=== PATIENT | female | born 1980 | race Caucasian/White ===

== ENCOUNTER 2016-07-06 14:23 | Emergency (ER) | payer SELFPAY ==
[~2016-07-06 14:23] MED LIST: ACET325T9 PO; ALBU8.5H6 IH; ALPR0.5T6 PO; ATEN100T PO; BUSP5TAB PO; CITA10TA8 PO; CITA20TA9 PO; DIPH25CA58 PO; GUAI600T38 PO; HYDR-2666 PO; HYDR10TA2 PO; HYOS0.1264 PO; IBUP200T43 PO; IBUP200T93 PO; IBUP400T PO; IBUP800T PO; LORA-434 PO; LORA0.5P MC; LORA0.5T96 PO; MULT1TAB52 PO; MVI, ADULT NO.4 WITH VIT K 10 ML, FOLIC ACID SYRINGE for ER 1 MG, THIAMINE 100 MG in IV... IV SCH; NAPR500T PO; ONDA4TAB12 PO; ONDA4TAB7 PO; PHEN100C PO; POTA20TA82 PO; PROM25AM6 IJ; PROM25SU32 RC; PROM25TA10 PO; QUET25TA5 PO; QUET300T5 PO; TRAM50TA PO; [UNRECOGNIZED DRUG - CODE] PO; [UNRECOGNIZED DRUG - OTHER]; iron; vistaril; vitamin c; zyprexa
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
[2016-07-06] MEDS ORDERED: PHENYTOIN SODIUM EXTENDED 100 MG CAPSULE PO ONE (15:15)
--- NOTE | 2016-07-06 15:15 | ACF ---
Admission Criteria Forms PSYCHIATRIC DISORDERS Clinical Indications for Inpatient Care (Place 'X' for any and all applicable criteria): Ongoing inpatient care may be needed for ANY ONE of the following(1)(2)(3)(4)(6) (7)(8): [X]I. Danger to self or others not manageable at lower level of care. [ ]II. Grave disability (eg, inability to perform self care necessary at lower level of care) [ ]III. Agitation or inappropriate behavior interfering with care for primary condition (eg, attempting to discontinue lines or drains prematurely, unable to cooperate with respiratory care) [ ]IV. Severe disability or disorder indicated by ALL of the following: [ ]a) Severe behavioral health disorder-related symptoms or condition indicated by ANY ONE of the following: [ ]i) Severe problem with cognition, memory, judgment, or impulse control [ ]ii) Severe clinical manifestations (eg, hallucinations, delusions, other acute psychotic symptoms, july, extreme agitation or anxiety) [ ]b) Patient management at lower level of care is not feasible until acute intervention or modification is initiated. Extended stay beyond goal length of stay for the primary condition may be indicated when ANY ONE of the following is present: (1)(2)(3)(4): [ ]a) Patient is a danger to self or others and not manageable at lower level of care. [ ]b) Behavior crisis management, including physical or chemical restraints, is required and is not available at a lower level of care. [ ]c) Behavioral symptoms (e.g., agitation, somnolence, inappropriate behavior) are present, and are not manageable at a lower level of care. [ ]d) Patient cannot understand follow-up treatment and crisis plan. [ ]e) Provider and supports are not sufficiently available at lower level of care. [ ]f) Patient cannot participate (e.g., verify absence of plan for harm) and is in needed of monitoring. The original [facility] content created by [employer] has been revised. The portions of the content which have been revised are identified through the use of italic text or in bold, and [facility] has neither reviewed nor approved the modified material. All other unmodified content is copyright [facility] [employer]. Please see references footnoted in the original [facility] edition 2016 Admission Criteria Met?: Yes KAR LEDESMA Jul 06, 2016 15:15
--- NOTE | 2016-07-06 15:28 | EKG ---
[address] [address] Test Date: 2016-07-06 Test Time: 15:27:38 Pat Name: ZACHARY AMBROSE Department: Room: Gender: F [employer]: MLOLY : 1980 Requested By: MARIA TERESA MONTANA Order Number: [id number] Reading MD: Farooq Foss Measurements Intervals Cascade Rate: 97 P: 90 MT: 160 QRS: 62 QRSD: 84 T: 67 QT: 342 QTc: 438 Interpretive Statements SINUS RHYTHM Electronically Signed On 07-11-2016 15:06:15 CDT by Farooq Foss
[2016-07-06] MEDS ORDERED: MVI, ADULT NO.4 WITH VIT K 10 ML, FOLIC ACID SYRINGE for ER 1 MG, THIAMINE 100 MG in IV... IV SCH ×4 (15:30)
[2016-07-06] MEDS ORDERED: NORMAL SALINE IV ONE (15:30)
[2016-07-06] MEDS ORDERED: FOSPHENYTOIN IV ONE (15:30)
[2016-07-06 15:33] LABS: BASO # 0.1 x10^3/uL (0.0-0.2); BASO % 1 % (0-3); EOS # 0.1 x10^3/uL (0.0-0.7); EOS % 2 % (0-3); HEMATOCRIT 41.6 % (36.0-47.0); HEMOGLOBIN 13.7 g/dL (12.0-15.5); LYMPH % 17 % (24-48); MEAN CORPUSCULAR HEMOGLOBIN 33 pg (25-35); MEAN CORPUSCULAR HGB CONC 33 g/dL (31-37); MEAN CORPUSCULAR VOLUME 99 fL (79-100); MONO # 0.3 x10^3/uL (0.0-1.1); MONO % 5 % (0-9); NEUT # 4.6 x10^3uL (1.8-7.7); NEUT % 75 % (31-73); PLATELET COUNT 214 x10^3/uL (140-400); RED BLOOD COUNT 4.21 x10^6/uL (3.50-5.40); RED CELL DISTRIBUTION WIDTH 13.3 % (11.5-14.5); WHITE BLOOD COUNT 6.1 x10^3/uL (4.0-11.0)
[2016-07-06 15:39] LABS: ALBUMIN 4.1 g/dL (3.4-5.0); ALBUMIN/GLOBULIN RATIO 1.1 (1.0-1.7); CALCIUM 9.3 mg/dL (8.5-10.1); CREATININE 0.9 mg/dL (0.6-1.0); GFR 70.8; TOTAL BILIRUBIN 0.3 mg/dL (0.2-1.0); TOTAL PROTEIN 7.9 g/dL (6.4-8.2)
[2016-07-06 16:10] LABS: PHENY < 0.5 mcg/mL (10.0-20.0)
[2016-07-06 16:42] LABS: BARBITURATES NEG (NEG); BENZODIAZEPINES NEG (NEG); CANNABINOIDS NEG (NEG); COCAINE NEG (NEG); METHADONE NEG (NEG); OPIATES NEG (NEG); PHENCYCLIDINE NEG (NEG)
[2016-07-06 16:44] LABS: AMPHETAMINE/METHAMPHETAMINE POS (NEG)
[2016-07-06 16:55] LABS: BILIRUBIN,URINE NEG (NEG); CLARITY,URINE CLEAR; COLOR,URINE YELLOW; GLUCOSE,URINE NEG (NEG); NITRITE,URINE NEG (NEG); UROBILINOGEN,URINE 0.2 mg/dL (0.2 mg/dL)
[2016-07-06 16:56] LABS: BACTERIA,URINE 0 /HPF (0-FEW); RBC,URINE OCC /HPF (0-2); SQUAMOUS EPITHELIAL CELL,UR MANY /LPF; WBC,URINE OCC /HPF (0-4)
[2016-07-06] MEDS ORDERED: ONDANSETRON PF 4 MG/2 ML VIAL. ONE (19:08)
[2016-07-06] MEDS ORDERED: ONDANSETRON PF 4 MG/2 ML VIAL. IV ONE ×2 (19:30→20:15)
[2016-07-06] MEDS ORDERED: LORAZEPAM 1 MG TABLET. PO ONE (22:15)
[2016-07-06] MEDS ORDERED: LORAZEPAM 2 MG/ML VIAL ONE (22:22)
[2016-07-06] MEDS ORDERED: IV NORMAL SALINE 500ML 500 ML ONE (22:42)
[2016-07-06] MEDS ORDERED: LORAZEPAM 2 MG/ML VIAL IV ONE (22:45)
[2016-07-06] MEDS ORDERED: NICOTINE 21MG PATCH. TD ONE ×2 (23:15→23:30)
[2016-07-06] MEDS ORDERED: IV NORMAL SALINE 500ML 500 ML IV ONE (23:15)
[2016-07-06 23:35] VITALS: BP 120/75
[2016-07-07] MEDS ORDERED: NICOTINE 7MG PATCH. TD SCH (09:00)
== END 2016-07-06 23:50 ==
LOC: ER 14:23 → EEVIPCON 14:23 → ER 23:50
DX: R45.851 Suicidal ideations (principal); F31.9 Bipolar disorder, unspecified; F15.10 Other stimulant abuse, uncomplicated; F17.200 Nicotine dependence, unspecified, uncomplicated; F41.9 Anxiety disorder, unspecified; J45.909 Unspecified asthma, uncomplicated; G43.909 Migraine, unspecified, not intractable, without status migrainosus; F19.10 Other psychoactive substance abuse, uncomplicated; Z91.14 Patient's other noncompliance with medication regimen; Z86.2 Personal history of diseases of the blood and blood-forming organs and certain disorders involving the immune mechanism; Z91.5 Personal history of self-harm; Z87.442 Personal history of urinary calculi; Z88.2 Allergy status to sulfonamides; Z88.8 Allergy status to other drugs, medicaments and biological substances; Z88.1 Allergy status to other antibiotic agents; Z91.041 Radiographic dye allergy status; Z88.5 Allergy status to narcotic agent; Z88.0 Allergy status to penicillin; Z91.013 Allergy to seafood
CPT/HCPCS: 36415; 51701; 80053; 80185; 80305; 80320; 81001; 84703; 85027; 85379; 93005; 96361; 96365; 96367; 96375; 96376; 99285; J2060; J2405; J7040; Q2009; 81025; G0480; G0481; J7030

== ENCOUNTER 2016-09-11 10:44 | Emergency (ER) | payer SELFPAY ==
[~2016-09-11] VITALS: Ht 162.6 cm; Wt 41.2 kg
[~2016-09-11 10:44] MED LIST changes: -GUAI600T38 PO; +GUAI600T47 PO; -HYDR-2666 PO; +HYDR-2758 PO; -IBUP400T PO; +IBUP400T18 PO; -IBUP800T PO; +IBUP800T19 PO; -MVI, ADULT NO.4 WITH VIT K 10 ML, FOLIC ACID SYRINGE for ER 1 MG, THIAMINE 100 MG in IV... IV SCH; +[UNRECOGNIZED DRUG - CODE] PO; -[UNRECOGNIZED DRUG - CODE] PO
--- NOTE | 2016-09-11 11:38 | PHYS DOC ---
Past History Past Medical History: Anemia, Anxiety, Bipolar, Kidney Stones, Migraines, Seizure, Other Past Surgical History: Appendectomy, Cholecystectomy, Oophorectomy, Tubal ligation Smoking: Cigarettes, Less than 1pk/day Alcohol Use: None Drug Use: Methamphetamine, Opiates Adult General Chief Complaint Chief Complaint: ABDOMINAL PAIN HPI HPI 35-year-old lady presents with left lower quadrant abdominal pain. She states that she's had the pain 4 days. She has had some nausea and vomiting and states she's been constipated. She has had tubal ligation. She denies fever chills or any other problems. Review of Systems Review of Systems Constitutional: Denies fever or chills [] Eyes: Denies change in visual acuity, redness, or eye pain [] HENT: Denies nasal congestion or sore throat [] Respiratory: Denies cough or shortness of breath [] Cardiovascular: No additional information not addressed in HPI [] GI: Complains of left lower quadrant abdominal pain with mild nausea, vomiting, he stools and has been constipated : Denies dysuria or hematuria [] Musculoskeletal: Denies back pain or joint pain [] Integument: Denies rash or skin lesions [] Neurologic: Denies headache, focal weakness or sensory changes [] Endocrine: Denies polyuria or polydipsia [] Allergies Allergies Allergies Coded Allergies Type Severity Reaction Last Updated Verified Penicillins Allergy Severe Anaphylaxis 02/17/15 Yes amoxicillin Allergy Severe Anaphylaxis 02/17/15 Yes Fish Containing Products Allergy Intermediate 02/17/15 Yes Haloperidol Lactate Allergy Intermediate Swelling 02/17/15 Yes Metronidazole HCl Allergy Intermediate Swelling 02/17/15 Yes Sulfa (Sulfonamide Antibiotics) Allergy Intermediate Swelling 02/17/15 Yes codeine Allergy Intermediate 02/17/15 No iodine Allergy Intermediate Swelling 02/17/15 Yes levofloxacin Allergy Intermediate Swelling 02/17/15 Yes metoclopramide HCl Allergy Intermediate Swelling 02/17/15 Yes prochlorperazine Allergy Intermediate Swelling 12/25/15 Yes propoxyphene Allergy Intermediate 02/17/15 No shellfish derived Allergy Intermediate 02/17/15 Yes morphine Adverse Reaction Intermediate HISTAMINE RESPONSE 02/17/15 Yes celecoxib Adverse Reaction Mild NAUSEA/VOMITING 02/17/15 Yes Physical Exam Physical Exam Constitutional: Well developed, well nourished, no acute distress, non-toxic appearance. [] HENT: Normocephalic, atraumatic, bilateral external ears normal, oropharynx moist, no oral exudates, nose normal. [] Eyes: PERRLA, EOMI, conjunctiva normal, no discharge. [] Neck: Normal range of motion, no tenderness, supple, no stridor. [] Cardiovascular:Heart rate regular rhythm, no murmur [] Lungs & Thorax: Bilateral breath sounds clear to auscultation [] Abdomen: Bowel sounds normal, soft, mild left lower quadrant abdominal tenderness no masses, no pulsatile masses. [] Skin: Warm, dry, no erythema, no rash. [] Back: No tenderness, no CVA tenderness. [] Extremities: No tenderness, no cyanosis, no clubbing, ROM intact, no edema. [] Neurologic: Alert and oriented X 3, normal motor function, normal sensory function, no focal deficits noted. [] Psychologic: Affect normal, judgement normal, mood normal. [] Pelvic examination; the patient is currently on her menstrual period. Cervix is closed there is blood coming from the cervix. There is very minimal adnexal tenderness in the left adnexa and the patient does have much stool in the colon EKG EKG [] Radiology/Procedures Radiology/Procedures [] Course & Med Decision Making Course & Med Decision Making Pertinent Labs and Imaging studies reviewed. (See chart for details) [] Dragon Disclaimer Dragon Disclaimer This chart was dictated in whole or in part using Voice Recognition software in a busy, high-work load, and often noisy Emergency Department environment. It may contain unintended and wholly unrecognized errors or omissions. Departure Departure: Referrals: PCP,NO (PCP) RANDI LEA MD Sep 11, 2016 11:37
[2016-09-11 11:47] LABS: BILIRUBIN,URINE NEG (NEG); CLARITY,URINE CLEAR; COLOR,URINE YELLOW; GLUCOSE,URINE NEG (NEG); NITRITE,URINE NEG (NEG); UROBILINOGEN,URINE 0.2 mg/dL (0.2 mg/dL)
[2016-09-11 11:48] LABS: BACTERIA,URINE FEW /HPF (0-FEW); RBC,URINE 0 /HPF (0-2); SQUAMOUS EPITHELIAL CELL,UR FEW /LPF
[2016-09-11] MEDS ORDERED: ONDANSETRON ODT 4 MG TAB.RAPDIS PO ONE (12:00)
[2016-09-11 12:09] LABS: BASO # 0.1 x10^3/uL (0.0-0.2); BASO % 1 % (0-3); EOS # 0.1 x10^3/uL (0.0-0.7); EOS % 2 % (0-3); HEMOGLOBIN 13.3 g/dL (12.0-15.5); LYMPH # 1.3 x10^3/uL (1.0-4.8); LYMPH % 14 % (24-48); MEAN CORPUSCULAR HEMOGLOBIN 32 pg (25-35); MEAN CORPUSCULAR HGB CONC 33 g/dL (31-37); MEAN CORPUSCULAR VOLUME 97 fL (79-100); MONO # 0.4 x10^3/uL (0.0-1.1); MONO % 5 % (0-9); NEUT # 6.8 x10^3uL (1.8-7.7); NEUT % 78 % (31-73); PLATELET COUNT 224 x10^3/uL (140-400); RED BLOOD COUNT 4.13 x10^6/uL (3.50-5.40); RED CELL DISTRIBUTION WIDTH 12.9 % (11.5-14.5); WHITE BLOOD COUNT 8.7 x10^3/uL (4.0-11.0)
--- NOTE | 2016-09-11 12:16 | RAD ---
Indication: Left pelvic pain for 3 to 4 days. Axial imaging through the abdomen and pelvis was performed without contrast. Relation is made with prior CT from 12/23/2015. The lung bases are clear. The liver is unremarkable. The gallbladder is surgically absent. The pancreas and spleen are unremarkable. No adrenal mass is identified. Kidneys are unremarkable. Aorta appears nonaneurysmal. The small and large bowel loops are normal caliber. There is a large amount of stool throughout the colon consistent with constipation. There is no ascites. No inflammatory process is seen. The bladder and uterus are unremarkable. Ovaries contain small cysts. There is a small amount of free fluid in the pelvis, likely physiologic. Impression: Findings suggestive of constipation. No acute feature in the abdomen or pelvis is identified. PQRS Compliance Statement: One or more of the following individualized dose reduction techniques were utilized for this examination: 1. Automated exposure control 2. Adjustment of the mA and/or kV according to patient size 3. Use of iterative reconstruction technique
[2016-09-11 12:19] LABS: ALBUMIN 3.3 g/dL (3.4-5.0); CALCIUM 8.8 mg/dL (8.5-10.1); CREATININE 0.9 mg/dL (0.6-1.0); GFR 70.8; POTASSIUM 4.5 mmol/L (3.5-5.1); TOTAL BILIRUBIN 0.2 mg/dL (0.2-1.0); TOTAL PROTEIN 6.7 g/dL (6.4-8.2)
[2016-09-11] MEDS ORDERED: NITR100C62 PO (13:05)
[2016-09-11 13:25] VITALS: BP 139/75
[2016-09-11] MEDS ORDERED: MAGNESIUM CITRATE 296 ML SOLUTION. PO ONE (13:30)
[2016-09-12 19:22] LABS: CHLAMYDIA PROBE Negative (Negative)
== END 2016-09-11 13:26 | disposition home or self-care (01) ==
LOC: ER 10:44
DX: N39.0 Urinary tract infection, site not specified (principal); R19.7 Diarrhea, unspecified; G43.909 Migraine, unspecified, not intractable, without status migrainosus; F31.9 Bipolar disorder, unspecified; Z87.442 Personal history of urinary calculi; Z86.2 Personal history of diseases of the blood and blood-forming organs and certain disorders involving the immune mechanism; F17.210 Nicotine dependence, cigarettes, uncomplicated; F15.10 Other stimulant abuse, uncomplicated; Z98.51 Tubal ligation status; Z90.49 Acquired absence of other specified parts of digestive tract; Z90.721 Acquired absence of ovaries, unilateral; Z88.2 Allergy status to sulfonamides; Z88.8 Allergy status to other drugs, medicaments and biological substances; Z88.6 Allergy status to analgesic agent; Z88.1 Allergy status to other antibiotic agents; Z91.041 Radiographic dye allergy status; Z88.5 Allergy status to narcotic agent; Z91.013 Allergy to seafood
CPT/HCPCS: 36415; 74176; 80053; 81001; 85027; 87086; 87491; 87591; 99285; Q0111; Q0162

== ENCOUNTER 2016-09-21 12:40 | Emergency (ER) | payer SELFPAY ==
[~2016-09-21] VITALS: Ht 157.5 cm; Wt 47.6 kg
[~2016-09-21 12:40] MED LIST changes: +NITR100C62 PO
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
[2016-09-21 13:21] LABS: BASO # 0.1 x10^3/uL (0.0-0.2); BASO % 1 % (0-3); EOS # 0.2 x10^3/uL (0.0-0.7); EOS % 3 % (0-3); HEMATOCRIT 39.6 % (36.0-47.0); HEMOGLOBIN 13.5 g/dL (12.0-15.5); LYMPH # 1.9 x10^3/uL (1.0-4.8); LYMPH % 24 % (24-48); MEAN CORPUSCULAR HEMOGLOBIN 32 pg (25-35); MEAN CORPUSCULAR HGB CONC 34 g/dL (31-37); MEAN CORPUSCULAR VOLUME 95 fL (79-100); MONO # 0.5 x10^3/uL (0.0-1.1); MONO % 6 % (0-9); NEUT # 5.1 x10^3uL (1.8-7.7); NEUT % 66 % (31-73); PLATELET COUNT 235 x10^3/uL (140-400); RED BLOOD COUNT 4.19 x10^6/uL (3.50-5.40); WHITE BLOOD COUNT 7.7 x10^3/uL (4.0-11.0)
[2016-09-21 13:28] LABS: ACETAMIN 4.8 mcg/mL (10-30); ALBUMIN 3.8 g/dL (3.4-5.0); CALCIUM 8.8 mg/dL (8.5-10.1); CREATININE 1.2 mg/dL (0.6-1.0); GFR 50.8; MAGNESIUM 1.7 mg/dL (1.8-2.4); POTASSIUM 3.3 mmol/L (3.5-5.1); SALIC 4.4 mg/dL (2.8-20.0); TOTAL BILIRUBIN 0.4 mg/dL (0.2-1.0); TOTAL PROTEIN 7.5 g/dL (6.4-8.2)
[2016-09-21 13:29] LABS: ETHANOL < 10 mg/dL (0-10)
[2016-09-21] MEDS ORDERED: ONDANSETRON ODT 4 MG TAB.RAPDIS PO ONE (13:50)
[2016-09-21] MEDS ORDERED: POTASSIUM CHLORIDE 20 MEQ TABLET.ER. PO ONE (14:00)
[2016-09-21] MEDS ORDERED: MAGNESIUM OXIDE 400 MG TABLET PO ONE (14:00)
[2016-09-21 14:11] LABS: BACTERIA,URINE FEW /HPF (0-FEW); BILIRUBIN,URINE NEG (NEG); CLARITY,URINE HAZY; COLOR,URINE YELLOW; GLUCOSE,URINE NEG (NEG); NITRITE,URINE NEG (NEG); RBC,URINE RARE /HPF (0-2); SQUAMOUS EPITHELIAL CELL,UR MOD /LPF; UROBILINOGEN,URINE 0.2 mg/dL (0.2 mg/dL)
[2016-09-21 14:13] LABS: U PREG PATIENT NEGATIVE (NEG)
[2016-09-21 14:16] LABS: BARBITURATES NEG (NEG); BENZODIAZEPINES NEG (NEG); CANNABINOIDS NEG (NEG); COCAINE NEG (NEG); METHADONE NEG (NEG); OPIATES NEG (NEG); PHENCYCLIDINE NEG (NEG)
[2016-09-21 14:17] LABS: AMPHETAMINE/METHAMPHETAMINE POS (NEG)
[2016-09-21 15:50] VITALS: BP 108/75
== END 2016-09-21 16:25 ==
LOC: ER 12:40
DX: R45.851 Suicidal ideations (principal); F15.20 Other stimulant dependence, uncomplicated; G43.909 Migraine, unspecified, not intractable, without status migrainosus; F41.9 Anxiety disorder, unspecified; F17.210 Nicotine dependence, cigarettes, uncomplicated; Z86.2 Personal history of diseases of the blood and blood-forming organs and certain disorders involving the immune mechanism; Z87.442 Personal history of urinary calculi; Z88.2 Allergy status to sulfonamides; Z88.8 Allergy status to other drugs, medicaments and biological substances; Z88.6 Allergy status to analgesic agent; Z88.1 Allergy status to other antibiotic agents; Z91.041 Radiographic dye allergy status; Z88.5 Allergy status to narcotic agent; Z88.0 Allergy status to penicillin; Z91.013 Allergy to seafood
CPT/HCPCS: 36415; 80053; 80305; 81001; 81025; 82550; 83735; 84443; 85027; 87086; 99285; G0480; Q0162; G0481

== ENCOUNTER 2016-12-13 10:13 | Emergency (ER) | payer MEDICAID ==
[~2016-12-13] VITALS: Ht 149.9 cm; Wt 47.6 kg
[~2016-12-13 10:13] MED LIST changes: +IBUP-4 PO; -IBUP200T93 PO
[2016-12-13] MEDS ORDERED: IV NORMAL SALINE 1,000ML 1,000 ML IV SCH (10:42)
[2016-12-13] MEDS ORDERED: 0.9 % SODIUM CHLORIDE 10 ML DISP.SYRIN. IV PRN (10:45)
[2016-12-13] MEDS ORDERED: DIVALPROEX SODIUM 125 MG TABLET.DR. PO ONE (10:45)
--- NOTE | 2016-12-13 10:54 | PHYS DOC ---
Past History Past Medical History: Anemia, Anxiety, Bipolar, Migraines, Seizure, Other Past Surgical History: Appendectomy, Cholecystectomy, Oophorectomy, Tubal ligation Smoking: Cigarettes, Less than 1pk/day Alcohol Use: None Drug Use: Amphetamine, Opiates Adult General Chief Complaint Chief Complaint: DRUG ABUSE HPI HPI He is a pleasant 36-year-old female with a known history of drug abuse using methamphetamines and smoking THC who presents and withdrawal symptoms. Patient was seen here sometime ago was admitted to an outpatient facility [facility] where she completed 3 months of rehabilitation program but 1 week prior to graduation she was picked up by her significant other particular back out to the community and she began using meth again. She's been on meth for last 3 weeks last usage was 4 days ago. She was seen yesterday at a fellow ER facility for seizures. She was treated that seizure given Depakote an oral dose at that time a 500 mg. She is normally on 500 mg daily which seems underdosing her based on her seizure history. She is not on medications at this time as she cannot afford them. Persistence today with increased nausea and vomiting and generalized weakness and dehydration secondary to the effects of narcotics and amphetamines withdrawal. She describes no blood in her stool or her vomit. She feels generally weak and dizzy when she stands and she says she is presently suffering from her typical migraines. It is a dull throbbing ache behind he tries which is typical for her. It is not worse of life and sudden onset there is been no fevers. She typically smokes for amphetamines and is not injected. Review of Systems Review of Systems Constitutional: Patient complains of generalized weakness and chills no fevers. Eyes: Denies change in visual acuity, redness, or eye pain [] HENT: Denies nasal congestion or sore throat [] Respiratory: Denies cough or shortness of breath [] Cardiovascular: No additional information not addressed in HPI [] GI: Denies abdominal pain, but she has had some nausea and nonbilious nonbloody vomiting with loose stools. : Denies dysuria or hematuria [] Musculoskeletal: Denies back pain or joint pain [] Integument: Denies rash or skin lesions [] Neurologic: Denies headache, focal weakness or sensory changes [] Endocrine: Denies polyuria or polydipsia [] Current Medications Current Medications Current Medications Medications (Trade) Dose Ordered Sig/Samantha Start Time Stop Time Status Last Admin Dose Admin Divalproex Sodium (Depakote) 250 mg 1X ONCE 12/13/16 10:45 12/13/16 10:46 Allergies Allergies Allergies Coded Allergies Type Severity Reaction Last Updated Verified Penicillins Allergy Severe Anaphylaxis 02/17/15 Yes amoxicillin Allergy Severe Anaphylaxis 02/17/15 Yes Fish Containing Products Allergy Intermediate 02/17/15 Yes Haloperidol Lactate Allergy Intermediate Swelling 02/17/15 Yes Metronidazole HCl Allergy Intermediate Swelling 02/17/15 Yes Sulfa (Sulfonamide Antibiotics) Allergy Intermediate Swelling 02/17/15 Yes codeine Allergy Intermediate 02/17/15 No iodine Allergy Intermediate Swelling 02/17/15 Yes levofloxacin Allergy Intermediate Swelling 02/17/15 Yes metoclopramide HCl Allergy Intermediate Swelling 02/17/15 Yes prochlorperazine Allergy Intermediate Swelling 12/25/15 Yes propoxyphene Allergy Intermediate 02/17/15 No shellfish derived Allergy Intermediate 02/17/15 Yes morphine Adverse Reaction Intermediate HISTAMINE RESPONSE 02/17/15 Yes celecoxib Adverse Reaction Mild NAUSEA/VOMITING 02/17/15 Yes Physical Exam Physical Exam Constitutional: Patient is thin and cachectic looking much older than stated age she has very poor dentition and she is demonstrated exam motor agitation[] HENT: Normocephalic, atraumatic, bilateral external ears normal, dry mucous membranes no oral exudates, nose normal. All oral dentition is degraded and lost.[] Eyes: PERRLA, EOMI, conjunctiva normal, no discharge. [] Neck: Normal range of motion, no tenderness, supple, no stridor. [] Cardiovascular:Heart rate regular rhythm, no murmur [] Lungs & Thorax: Bilateral breath sounds clear to auscultation [] Abdomen: Bowel sounds normal, soft, no tenderness, no masses, no pulsatile masses. [] Skin: Warm, dry, no erythema, no rash. [] Back: No tenderness, no CVA tenderness. [] Extremities: No tenderness, no cyanosis, no clubbing, ROM intact, no edema. [] Neurologic: Alert and oriented X 3, normal motor function, normal sensory function, no focal deficits noted. [] Psychologic: sHe is anxious. Judgment is intact she is regretful of her recent Sojourn back into drug abuse. Current Patient Data Lab Results Laboratory Tests Test 12/13/16 11:04 12/13/16 12:55 12/13/16 13:09 White Blood Count 7.8 x10^3/uL (4.0-11.0) Red Blood Count 4.68 x10^6/uL (3.50-5.40) Hemoglobin 15.4 g/dL (12.0-15.5) Hematocrit 44.8 % (36.0-47.0) Mean Corpuscular Volume 96 fL (79-100) Mean Corpuscular Hemoglobin 33 pg (25-35) Mean Corpuscular Hemoglobin Concent 34 g/dL (31-37) Red Cell Distribution Width 13.0 % (11.5-14.5) Platelet Count 234 x10^3/uL (140-400) Neutrophils (%) (Auto) 76 % (31-73) H Lymphocytes (%) (Auto) 15 % (24-48) L Monocytes (%) (Auto) 6 % (0-9) Eosinophils (%) (Auto) 3 % (0-3) Basophils (%) (Auto) 1 % (0-3) Neutrophils # (Auto) 5.9 x10^3uL (1.8-7.7) Lymphocytes # (Auto) 1.2 x10^3/uL (1.0-4.8) Monocytes # (Auto) 0.4 x10^3/uL (0.0-1.1) Eosinophils # (Auto) 0.2 x10^3/uL (0.0-0.7) Basophils # (Auto) 0.1 x10^3/uL (0.0-0.2) Sodium Level 136 mmol/L (136-145) Potassium Level 3.5 mmol/L (3.5-5.1) Chloride Level 101 mmol/L (98-107) Carbon Dioxide Level 29 mmol/L (21-32) Anion Gap 6 (6-14) Blood Urea Nitrogen 6 mg/dL (7-20) L Creatinine 0.9 mg/dL (0.6-1.0) Estimated GFR (Cockcroft-Gault) 70.5 Glucose Level 105 mg/dL (70-99) H Calcium Level 9.7 mg/dL (8.5-10.1) Magnesium Level 2.1 mg/dL (1.8-2.4) Total Bilirubin 0.2 mg/dL (0.2-1.0) Direct Bilirubin 0.1 mg/dL (0.0-0.2) Aspartate Amino Transferase (AST) 17 U/L (15-37) Alanine Aminotransferase (ALT) 20 U/L (14-59) Alkaline Phosphatase 82 U/L (46-116) Total Protein 8.3 g/dL (6.4-8.2) H Albumin 4.3 g/dL (3.4-5.0) Salicylates Level 2.8 mg/dL (2.8-20.0) Salicylate Last Dose Date Unk Salicylate Last Dose Time Unk Acetaminophen Level < 2.0 mcg/mL (10-30) L Acetaminophen Last Dose Date Unk Acetaminophen Last Dose Time Unk Ethyl Alcohol Level < 10 mg/dL (0-10) Urine Collection Type U cath Urine Color Yellow Urine Clarity Hazy Urine pH 6.0 Urine Specific [place] <=1.005 Urine Protein Neg (NEG-TRACE) Urine Glucose (UA) Neg mg/dL (NEG) Urine Ketones (Stick) Neg mg/dL (NEG) Urine Blood Trace (NEG) Urine Nitrite Neg (NEG) Urine Bilirubin Neg (NEG) Urine Urobilinogen Dipstick 0.2 mg/dL (0.2 mg/dL) Urine Leukocyte Esterase Trace (NEG) Urine RBC Rare /HPF (0-2) Urine WBC 1-4 /HPF (0-4) Urine Squamous Epithelial Cells Many /LPF Urine Bacteria Few /HPF (0-FEW) Urine Mucus Slight /LPF Urine Opiates Screen Neg (NEG) Urine Methadone Screen Neg (NEG) Urine Barbiturates Neg (NEG) Urine Phencyclidine Screen Neg (NEG) Urine Amphetamine/Methamphetamine Pos (NEG) Urine Benzodiazepines Screen Neg (NEG) Urine Cocaine Screen Neg (NEG) Urine Cannabinoids Screen Neg (NEG) Urine Ethyl Alcohol Neg (NEG) POC Urine HCG, Qualitative hcg negative (Negative) EKG EKG [] Radiology/Procedures Radiology/Procedures [] Course & Med Decision Making Course & Med Decision Making Pertinent Labs and Imaging studies reviewed. (See chart for details) patient is a pleasant 36-year-old female with a known history of drug abuse is back to using amphetamines after being clean and sober for 3 months. She is on about a 3 week range. Her major complaint is generalized weakness nausea inability to tolerate by mouth food and fluids and diarrhea. She admits her last amphetamine usage was 4 days ago. At this point we will provide her supportive care for her jaw symptoms which is likely causing her symptoms protect her from seizures beginning her dose of oral Depakote here she is been noncompliant with medications and she was just seen yesterday for similar complaints. We will encourage her to follow-up with her regular doctor if she doesn't have a primary care physician we will provide her the resource management guidelines and local physicians willing to help her. Time is now 12 PM patient is resting quietly. There were still pending at this time urinalysis is not obtained as she has not been able to urinate. Patient tells me that their symptoms given during CC are improved. She does live as been reviewed at 1 PM demonstrating a normal CBC with mild left shift patient's alcohol level negative, salicylate levels negative, acetaminophen levels negative, urine drug screen is positive for amphetamines. Patient again is resting quietly. Time is now 2:05 PM patient is asleep and be woken up was provided a meal. She is not suicidal or homicidal at this time. She is asked for resources and referral to a crisis Center to help with her addiction. We have provided that information.[] Dragon Disclaimer Dragon Disclaimer This chart was dictated in whole or in part using Voice Recognition software in a busy, high-work load, and often noisy Emergency Department environment. It may contain unintended and wholly unrecognized errors or omissions. Departure Departure: Impression: Primary Impression: Drug abuse Additional Impressions: Withdrawal symptoms, drug or narcotic Nausea and vomiting Disposition: 01 HOME, SELF-CARE Condition: IMPROVED Referrals: PCPNJ (PCP) Patient Instructions: Alcohol and Drug Addiction, Finding Treatment, Drug Abuse and Addiction-SportsMed Additional Instructions: My discharge plan Follow up: In addition patient is asked to followup with their primary doctor, within a week for followup examination and to address patient's ongoing medical conditions. Because patient does not have a regular medical doctor, a local physician Resource Sheet will be provided to establish care primary care. You will also be provided with the resource guidelines for the crisis Center Patient is advised that in the Emergency Department primary complaints are addressed and only in light of known signs and symptoms. Patient should return immediately to the emergency department if new signs and symptoms develop or patient's condition worsens in any way. At time of discharge patient was in stable condition and had verbalized understanding of the discharge instructions. Scripts Ondansetron (ZOFRAN ODT) 8 Mg Tab.rapdis 4 MG PO TID for 3 Days Prov: CALOS LOREDO MD 12/13/16 Clonidine Hcl (CLONIDINE HCL) 0.1 Mg Tablet 1 TAB PO TID for WITHDRAWAL IRRITABILITY, #30 TAB 2 Refills Prov: CALOS LOREDO MD 12/13/16 Problem Qualifiers CALOS LOREDO MD Dec 13, 2016 10:54
[2016-12-13] MEDS ORDERED: LORazepam 2 MG/ML VIAL IV ONE (11:00)
[2016-12-13] MEDS ORDERED: ONDANSETRON PF 4 MG/2 ML VIAL. IV ONE (11:00)
[2016-12-13 11:20] LABS: BASO # 0.1 x10^3/uL (0.0-0.2); BASO % 1 % (0-3); EOS # 0.2 x10^3/uL (0.0-0.7); EOS % 3 % (0-3); HEMATOCRIT 44.8 % (36.0-47.0); HEMOGLOBIN 15.4 g/dL (12.0-15.5); LYMPH # 1.2 x10^3/uL (1.0-4.8); LYMPH % 15 % (24-48); MEAN CORPUSCULAR HEMOGLOBIN 33 pg (25-35); MEAN CORPUSCULAR HGB CONC 34 g/dL (31-37); MEAN CORPUSCULAR VOLUME 96 fL (79-100); MONO # 0.4 x10^3/uL (0.0-1.1); MONO % 6 % (0-9); NEUT # 5.9 x10^3uL (1.8-7.7); NEUT % 76 % (31-73); PLATELET COUNT 234 x10^3/uL (140-400); RED BLOOD COUNT 4.68 x10^6/uL (3.50-5.40); WHITE BLOOD COUNT 7.8 x10^3/uL (4.0-11.0)
[2016-12-13 11:30] LABS: ALBUMIN 4.3 g/dL (3.4-5.0); CALCIUM 9.7 mg/dL (8.5-10.1); CREATININE 0.9 mg/dL (0.6-1.0); DIRECT BILIRUBIN 0.1 mg/dL (0.0-0.2); GFR 70.5; MAGNESIUM 2.1 mg/dL (1.8-2.4); POTASSIUM 3.5 mmol/L (3.5-5.1); TOTAL BILIRUBIN 0.2 mg/dL (0.2-1.0); TOTAL PROTEIN 8.3 g/dL (6.4-8.2)
[2016-12-13 11:31] LABS: ETHANOL < 10 mg/dL (0-10); SALIC 2.8 mg/dL (2.8-20.0)
[2016-12-13 11:32] LABS: ACETAMIN < 2.0 mcg/mL (10-30)
[2016-12-13 13:18] LABS: AMPHETAMINE/METHAMPHETAMINE POS (NEG); BARBITURATES NEG (NEG); BENZODIAZEPINES NEG (NEG); CANNABINOIDS NEG (NEG); COCAINE NEG (NEG); METHADONE NEG (NEG); OPIATES NEG (NEG); PHENCYCLIDINE NEG (NEG)
[2016-12-13 13:22] LABS: BACTERIA,URINE FEW /HPF (0-FEW); BILIRUBIN,URINE NEG (NEG); CLARITY,URINE HAZY; COLOR,URINE YELLOW; GLUCOSE,URINE NEG (NEG); NITRITE,URINE NEG (NEG); RBC,URINE RARE /HPF (0-2); SQUAMOUS EPITHELIAL CELL,UR MANY /LPF; UROBILINOGEN,URINE 0.2 mg/dL (0.2 mg/dL)
[2016-12-13] MEDS ORDERED: CLON0.1T PO (14:09)
[2016-12-13] MEDS ORDERED: ONDA8TAB12 PO (14:09)
[2016-12-13 14:17] VITALS: BP 128/80
== END 2016-12-13 15:20 | disposition home or self-care (01) ==
LOC: ER 10:13 → ICU 12-15 00:36 → UNDOADMIN 12-15 00:36
DX: F15.93 Other stimulant use, unspecified with withdrawal (principal); F11.23 Opioid dependence with withdrawal; F17.210 Nicotine dependence, cigarettes, uncomplicated; R11.2 Nausea with vomiting, unspecified; R53.1 Weakness; E86.0 Dehydration; G43.909 Migraine, unspecified, not intractable, without status migrainosus; G40.909 Epilepsy, unspecified, not intractable, without status epilepticus
CPT/HCPCS: 36415; 51701; 80048; 80076; 80307; 81001; 81025; 83735; 85025; 87086; 96361; 96374; 96375; 99285; G0480; J2060; J2405; G0479; J7030

== ENCOUNTER 2016-12-14 20:57 | Inpatient (IN) | payer MEDICAID ==
[~2016-12-14] VITALS: Ht 162.6 cm; Wt 47.6 kg
[~2016-12-14 20:57] MED LIST changes: +CLON0.1T PO; +ONDA8TAB12 PO
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
[2016-12-14 22:18] LABS: BASO % 1 % (0-3); EOS # 0.2 x10^3/uL (0.0-0.7); EOS % 3 % (0-3); HEMOGLOBIN 12.8 g/dL (12.0-15.5); LYMPH # 1.6 x10^3/uL (1.0-4.8); LYMPH % 29 % (24-48); MEAN CORPUSCULAR HEMOGLOBIN 33 pg (25-35); MEAN CORPUSCULAR HGB CONC 35 g/dL (31-37); MEAN CORPUSCULAR VOLUME 96 fL (79-100); MONO # 0.4 x10^3/uL (0.0-1.1); MONO % 8 % (0-9); NEUT # 3.1 x10^3uL (1.8-7.7); NEUT % 59 % (31-73); PLATELET COUNT 185 x10^3/uL (140-400); RED BLOOD COUNT 3.87 x10^6/uL (3.50-5.40); WHITE BLOOD COUNT 5.3 x10^3/uL (4.0-11.0)
[2016-12-14 22:22] LABS: BILIRUBIN,URINE NEG (NEG); CLARITY,URINE CLEAR; COLOR,URINE STRAW; GLUCOSE,URINE NEG (NEG); NITRITE,URINE NEG (NEG); UROBILINOGEN,URINE 0.2 mg/dL (0.2 mg/dL)
[2016-12-14 22:27] LABS: AMPHETAMINE/METHAMPHETAMINE POS (NEG); BARBITURATES NEG (NEG); BENZODIAZEPINES NEG (NEG); CANNABINOIDS NEG (NEG); COCAINE NEG (NEG); METHADONE NEG (NEG); OPIATES NEG (NEG); PHENCYCLIDINE NEG (NEG)
[2016-12-14 22:30] LABS: BACTERIA,URINE 0 /HPF (0-FEW); RBC,URINE RARE /HPF (0-2); SQUAMOUS EPITHELIAL CELL,UR MOD /LPF
[2016-12-14] MEDS ORDERED: ACETAMINOPHEN 500 MG TABLET PO ONE ×2 (22:52→23:00)
[2016-12-14] MEDS ORDERED: ONDANSETRON ODT 4 MG TAB.RAPDIS ONE (22:52)
--- NOTE | 2016-12-14 22:52 | EKG ---
[address] [address] Test Date: 2016-12-14 Test Time: 22:04:38 Pat Name: ZACHARY AMBROSE Department: Room: Gender: F [employer]: : 1980 Requested By: GISELE DOAN Order Number: [id number] Reading MD: Measurements Intervals [place] Rate: 85 P: 68 NC: 168 QRS: 40 QRSD: 86 T: 61 QT: 364 QTc: 433 Interpretive Statements SINUS RHYTHM INCOMPLETE RIGHT BUNDLE BRANCH BLOCK QRS(T) CONTOUR ABNORMALITY CONSIDER ANTEROLATERAL MYOCARDIAL DAMAGE POSSIBLY ABNORMAL ECG RI6.01 No previous ECG available for comparison
[2016-12-14 23:00] LABS: ALBUMIN 3.4 g/dL (3.4-5.0); ALBUMIN/GLOBULIN RATIO 1.1 (1.0-1.7); CALCIUM 8.6 mg/dL (8.5-10.1); CREATININE 0.8 mg/dL (0.6-1.0); GFR 80.7; TOTAL BILIRUBIN 0.2 mg/dL (0.2-1.0); TOTAL PROTEIN 6.4 g/dL (6.4-8.2)
[2016-12-14] MEDS ORDERED: ONDANSETRON ODT 4 MG TAB.RAPDIS PO ONE (23:00)
[2016-12-14] MEDS ORDERED: POTASSIUM CHLORIDE 20 MEQ TABLET.ER. PO ONE (23:00)
[2016-12-14 23:02] LABS: POTASSIUM 2.8 mmol/L (3.5-5.1)
[2016-12-14] MEDS ORDERED: PROMETHAZINE 25 MG TABLET. PO ONE (23:45)
[2016-12-15] VITALS (10 sets, daily range): BP systolic 107–153; BP diastolic 58–79
[2016-12-15] MEDS ORDERED: ACETAMINOPHEN 325 MG TABLET PO PRN (00:45)
[2016-12-15] MEDS ORDERED: ONDANSETRON PF 4 MG/2 ML VIAL. IV PRN (00:45)
[2016-12-15] MEDS ORDERED: POTASSIUM CL 40MEQ IN 0.9%NACL 1,000 ML IV ONE (01:00)
[2016-12-15] MEDS ORDERED: DIVA500T2 PO (01:25)
[2016-12-15] MEDS ORDERED: CITA20TA9 PO (01:26)
[2016-12-15] MEDS: IV NORMAL SALINE 1,000ML 1,000 ML IV SCH ×2 (03:03→08:55)
[2016-12-15 05:56] LABS: BASO # 0.1 x10^3/uL (0.0-0.2); BASO % 1 % (0-3); EOS # 0.2 x10^3/uL (0.0-0.7); EOS % 4 % (0-3); HEMATOCRIT 32.4 % (36.0-47.0); HEMOGLOBIN 11.4 g/dL (12.0-15.5); LYMPH # 1.9 x10^3/uL (1.0-4.8); LYMPH % 41 % (24-48); MEAN CORPUSCULAR HEMOGLOBIN 34 pg (25-35); MEAN CORPUSCULAR HGB CONC 35 g/dL (31-37); MEAN CORPUSCULAR VOLUME 95 fL (79-100); MONO # 0.4 x10^3/uL (0.0-1.1); MONO % 9 % (0-9); NEUT % 45 % (31-73); PLATELET COUNT 176 x10^3/uL (140-400); RED BLOOD COUNT 3.41 x10^6/uL (3.50-5.40); RED CELL DISTRIBUTION WIDTH 12.9 % (11.5-14.5); WHITE BLOOD COUNT 4.5 x10^3/uL (4.0-11.0)
[2016-12-15 06:10] LABS: ALBUMIN/GLOBULIN RATIO 1.2 (1.0-1.7); CALCIUM 8.2 mg/dL (8.5-10.1); CREATININE 0.8 mg/dL (0.6-1.0); GFR 80.7; POTASSIUM 4.3 mmol/L (3.5-5.1); TOTAL BILIRUBIN 0.4 mg/dL (0.2-1.0); TOTAL PROTEIN 5.6 g/dL (6.4-8.2)
[2016-12-15] MEDS ORDERED: DIVALPROEX SODIUM 250 MG TABLET.DR. PO SCH (09:00)
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
[2016-12-15] MEDS ORDERED: QUEtiapine 100 MG TABLET. PO SCH (21:00)
== END 2016-12-15 13:02 | DRG 885 ==
LOC: ER 20:57 → 1 SOUTH 12-15 00:36 → ER 12-15 00:58 → ICU 12-15 01:05
PROVIDERS: ADMIT Internal Medicine; ATTEND Internal Medicine
DX: F31.4 Bipolar disorder, current episode depressed, severe, without psychotic features (principal); R45.851 Suicidal ideations; G40.909 Epilepsy, unspecified, not intractable, without status epilepticus; E87.6 Hypokalemia; F15.10 Other stimulant abuse, uncomplicated; F17.210 Nicotine dependence, cigarettes, uncomplicated; F41.9 Anxiety disorder, unspecified; G43.909 Migraine, unspecified, not intractable, without status migrainosus; F11.90 Opioid use, unspecified, uncomplicated; Z82.49 Family history of ischemic heart disease and other diseases of the circulatory system; Z83.3 Family history of diabetes mellitus; Z90.49 Acquired absence of other specified parts of digestive tract; Z90.721 Acquired absence of ovaries, unilateral; Z88.2 Allergy status to sulfonamides; Z88.8 Allergy status to other drugs, medicaments and biological substances; Z88.6 Allergy status to analgesic agent; Z88.1 Allergy status to other antibiotic agents; Z88.0 Allergy status to penicillin; Z91.013 Allergy to seafood
CPT/HCPCS: 36415; 80053; 80307; 81001; 83690; 85025; 87641; 93005; G0480; Q0162; Q0169; 99285-25; G0479; J7030

== ENCOUNTER 2017-09-06 18:29 | Emergency (ER) | payer SELFPAY ==
[~2017-09-06] VITALS: Ht 162.6 cm; Wt 49.0 kg
[~2017-09-06 18:29] MED LIST changes: +DIVA500T2 PO; -IBUP200T43 PO; +IBUP200T44 PO; +LORA-254 PO; -LORA-434 PO; +NAPR-683 PO; -NAPR500T PO
--- NOTE | 2017-09-06 19:32 | EKG ---
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
[2017-09-06 20:18] LABS: BASO % 1 % (0-3); EOS # 0.2 x10^3/uL (0.0-0.7); EOS % 3 % (0-3); HEMATOCRIT 42.1 % (36.0-47.0); HEMOGLOBIN 14.6 g/dL (12.0-15.5); LYMPH # 1.5 x10^3/uL (1.0-4.8); LYMPH % 22 % (24-48); MEAN CORPUSCULAR HEMOGLOBIN 33 pg (25-35); MEAN CORPUSCULAR HGB CONC 35 g/dL (31-37); MEAN CORPUSCULAR VOLUME 94 fL (79-100); MONO # 0.3 x10^3/uL (0.0-1.1); MONO % 4 % (0-9); NEUT # 4.6 x10^3uL (1.8-7.7); NEUT % 70 % (31-73); PLATELET COUNT 238 x10^3/uL (140-400); RED BLOOD COUNT 4.49 x10^6/uL (3.50-5.40); RED CELL DISTRIBUTION WIDTH 13.8 % (11.5-14.5); WHITE BLOOD COUNT 6.5 x10^3/uL (4.0-11.0)
[2017-09-06 20:49] LABS: AMPHETAMINE/METHAMPHETAMINE NEG (NEG); BARBITURATES NEG (NEG); BENZODIAZEPINES NEG (NEG); CANNABINOIDS NEG (NEG); COCAINE NEG (NEG); METHADONE NEG (NEG); OPIATES NEG (NEG); PHENCYCLIDINE NEG (NEG)
[2017-09-06 20:55] VITALS: BP 152/89
[2017-09-06 21:08] LABS: BACTERIA,URINE MANY /HPF (0-FEW); BILIRUBIN,URINE NEG (NEG); CLARITY,URINE CLOUDY; COLOR,URINE STRAW; GLUCOSE,URINE NEG (NEG); NITRITE,URINE POS (NEG); SQUAMOUS EPITHELIAL CELL,UR MANY /LPF; TRICHOMONAS,URINE PRESENT; UROBILINOGEN,URINE 0.2 mg/dL (0.2 mg/dL)
[2017-09-06 21:36] LABS: ALBUMIN 3.8 g/dL (3.4-5.0); CREATININE 0.8 mg/dL (0.6-1.0); GFR 80.7; POTASSIUM 3.7 mmol/L (3.5-5.1); TOTAL BILIRUBIN 0.3 mg/dL (0.2-1.0); TOTAL PROTEIN 7.5 g/dL (6.4-8.2)
[2017-09-06 21:40] LABS: ACETAMIN < 2.0 mcg/mL (10-30)
[2017-09-06 21:41] LABS: ETHANOL < 10 mg/dL (0-10)
[2017-09-06] MEDS ORDERED: DOXYCYCLINE HYCLATE 100 MG TABLET PO ONE (22:00)
[2017-09-06] MEDS ORDERED: PHENAZOPYRIDINE 100 MG TABLET. PO ONE (23:00)
[2017-09-07] MEDS ORDERED: DIVALPROEX SODIUM 125 MG TABLET.DR. PO ONE (01:00)
[2017-09-07 01:17] LABS: VAL ACID < 3 mcg/mL (50-100)
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
== END 2017-09-07 01:15 ==
LOC: ER 18:29 → EEVIPCON 18:29 → ER 09-07 01:15
DX: R45.851 Suicidal ideations (principal); F15.10 Other stimulant abuse, uncomplicated; R30.0 Dysuria; R39.15 Urgency of urination; F41.9 Anxiety disorder, unspecified; F31.9 Bipolar disorder, unspecified; G43.909 Migraine, unspecified, not intractable, without status migrainosus; F17.210 Nicotine dependence, cigarettes, uncomplicated; F11.10 Opioid abuse, uncomplicated; Z88.2 Allergy status to sulfonamides; Z88.8 Allergy status to other drugs, medicaments and biological substances; Z88.6 Allergy status to analgesic agent; Z91.041 Radiographic dye allergy status; Z88.5 Allergy status to narcotic agent; Z88.0 Allergy status to penicillin; Z91.013 Allergy to seafood
CPT/HCPCS: 36415; 80053; 80164; 80307; 81001; 85025; 87086; 93005; 99285; G0480; G6039; 82003; G0479